=== PATIENT | female | born 1975 | race African-American/Black ===

== ENCOUNTER 2022-07-21 17:19 | Emergency (ER) | payer OTHER, SELFPAY ==
[2022-07-21] MEDS ORDERED: Clindamycin 150 MG CAP ONE (18:05)
== END 2022-07-21 18:11 | disposition home or self-care (01) ==
LOC: NAV ERS 17:19
DX: L02.415 Cutaneous abscess of right lower limb (principal); R00.0 Tachycardia, unspecified
CPT/HCPCS: 87070; 87077; 87186; 87205; 99283